=== PATIENT | male | born 1940 | race Caucasian/White ===

== ENCOUNTER 2016-09-17 09:14 | Day surgery (SDC) | payer MEDICARE, OTHER ==
[~2016-09-17 09:14] MED LIST: LIDOCAINE HCL 1% MPF SOL ONE; PROPOFOL 500 MG/50 ML EMU IV ONE
[2016-09-17] MEDS ORDERED: PROPOFOL 10 MG/ML EMU IV ONE (13:08)
[2016-09-17 13:33] VITALS: O2SAT 98
== END 2016-09-17 15:58 | disposition home or self-care (01) | DRG 812 ==
LOC: SURG 09:14
PROVIDERS: ATTEND Surgery
DX: D50.0 Iron deficiency anemia secondary to blood loss (chronic) (principal); D12.0 Benign neoplasm of cecum; R19.5 Other fecal abnormalities; D12.2 Benign neoplasm of ascending colon; D12.5 Benign neoplasm of sigmoid colon; D12.3 Benign neoplasm of transverse colon; D12.8 Benign neoplasm of rectum; K29.50 Unspecified chronic gastritis without bleeding
CPT/HCPCS: 36415; 71260; 74177; Q9967; J2001; J2704

== ENCOUNTER 2017-07-26 15:17 | Emergency (ER) | payer MEDICARE, OTHER ==
[2017-07-26] MEDS ORDERED: MORPHINE SULFATE 10 MG/ML SOL IV ONE (15:46)
[2017-07-26] MEDS ORDERED: MORPHINE SULFATE 10 MG/ML SOL ONE (15:58)
[2017-07-26 15:59] LABS: BASOPHILS % (AUTO) 1 % (0-3); EOSINOPHILS % (AUTO) 2 % (0-9); HEMATOCRIT 34 % (39-53); HEMOGLOBIN 11.8 gm/dl (13.5-17.7); MEAN CORPUSCULAR HEMOGLOBIN 29.6 pg (27.0-32.0); MEAN CORPUSCULAR HGB CONC 34.5 gm/dl (32.0-36.0); MEAN CORPUSCULAR VOLUME 86 fL (80-100); MONOCYTES % (AUTO) 12.1 % (0-12); NEUTROPHILS % (AUTO) 71.9 % (37-80)
[2017-07-26] MEDS: SODIUM CHLORIDE 0.9% FLUSH 10 ML SOL IV PRN ×2 (16:00→16:47)
[2017-07-26 16:18] LABS: BILIRUBIN,TOTAL 0.2 mg/dl (0.2-1.0); CALCIUM 8.1 mg/dl (8.5-10.1); CARBON DIOXIDE 28.4 mEq/L (21-32); CREATININE 1.2 mg/dl (0.80-1.30); TOTAL PROTEIN 6.7 gm/dl (6.4-8.2); TROP I 0.019 ng/ml (0.000-0.056)
[2017-07-26] MEDS ORDERED: LEVOFLOXACIN IV ONE (17:19)
[2017-07-26] MEDS ORDERED: SODIUM CHLORIDE 0.9% IV ONE (17:19)
[2017-07-26] MEDS ORDERED: LEVOFLOXACIN 25 MG/ML SOL IV ONE (17:25)
[2017-07-26 18:42] VITALS: BP 117/76; PULSE 70; RESP 20; TEMP 99.5; O2SAT 96
== END 2017-07-26 18:42 | disposition home or self-care (01) | DRG 195 ==
LOC: ED 15:17
DX: J18.1 Lobar pneumonia, unspecified organism (principal); M25.559 Pain in unspecified hip
CPT/HCPCS: 71045; 72133; 73502; 80053; 83880; 84484; 85025; 93005; 99285; J1956; J2270

== ENCOUNTER 2018-06-21 12:06 | Inpatient (IN) | payer MEDICARE, OTHER ==
[2018-06-21] MEDS ORDERED: SODIUM CHLORIDE 0.9% FLUSH 10 ML SOL IV PRN (12:21)
[2018-06-21] MEDS ORDERED: ONDANSETRON HCL 4 MG/2 ML SOL IV PRN (12:24)
[2018-06-21] MEDS ORDERED: LORAZEPAM 0.5 MG TAB PO PRN (13:27)
[2018-06-21] MEDS ORDERED: HYDROXYZINE HCL 10 MG PO PRN (13:27)
[2018-06-21] MEDS ORDERED: ACETAMINOPHEN 325 MG PO PRN (13:27)
[2018-06-21] MEDS: SODIUM CHLORIDE 0.9% 1000ML 1,000 ML IV SCH ×2 (13:49→18:22)
[2018-06-21] MEDS: PANTOPRAZOLE SODIUM 40 MG/10 ML PDS IV SCH (13:49)
[2018-06-21] MEDS: CARVEDILOL 3.125 MG TAB PO SCH (17:38)
[2018-06-21] MEDS ORDERED: TEMAZEPAM 15MG 15 MG CAP PO PRN (18:43)
[2018-06-21] MEDS: APAP/HYDROCODONE 1 EACH TABLET PO PRN (21:36)
[2018-06-21] MEDS: ATORVASTATIN 10 MG TAB PO SCH (21:36)
[2018-06-21] MEDS: SENNOSIDES A AND B 8.6 MG TAB PO SCH (21:37)
[2018-06-21] MEDS: FAMOTIDINE 20 MG TAB PO SCH (21:37)
[2018-06-21] MEDS ORDERED: DEXAMETHASONE 1 MG PO SCH (23:00)
[2018-06-22] MEDS: SODIUM CHLORIDE 0.9% 1000ML 1,000 ML IV SCH ×4 (00:47→23:56)
[2018-06-22] MEDS: APAP/HYDROCODONE 1 EACH TABLET PO PRN ×3 (07:20→21:17)
[2018-06-22 08:01] LABS: BASOPHILS % (AUTO) 1 % (0-3); EOSINOPHILS % (AUTO) 1 % (0-9); HEMATOCRIT 30 % (39-53); HEMOGLOBIN 9.7 gm/dl (13.5-17.7); LYMPHOCYTES % (AUTO) 8.4 % (10-50); MEAN CORPUSCULAR HEMOGLOBIN 25.9 pg (27.0-32.0); MEAN CORPUSCULAR HGB CONC 32.3 gm/dl (32.0-36.0); MONOCYTES % (AUTO) 12.7 % (0-12); NEUTROPHILS % (AUTO) 77.2 % (37-80)
[2018-06-22 08:02] LABS: MEAN CORPUSCULAR VOLUME 80 fL (80-100)
[2018-06-22 08:11] LABS: CALCIUM 7.6 mg/dl (8.5-10.1); CREATININE 0.9 mg/dl (0.80-1.30); POTASSIUM 4.5 mMol/L (3.5-5.1)
[2018-06-22 08:19] LABS: CARBON DIOXIDE 25.1 mEq/L (21-32)
[2018-06-22] MEDS: DOCUSATE SODIUM 100 MG SGL PO SCH (08:25)
[2018-06-22] MEDS: CARVEDILOL 3.125 MG TAB PO SCH ×2 (08:25→17:12)
[2018-06-22] MEDS: SENNOSIDES A AND B 8.6 MG TAB PO SCH ×2 (08:26→21:18)
[2018-06-22] MEDS: FAMOTIDINE 20 MG TAB PO SCH ×2 (08:26→21:18)
[2018-06-22] MEDS: ENOXAPARIN 100 MG SOL SC SCH (08:30)
[2018-06-22] MEDS: PANTOPRAZOLE SODIUM 40 MG/10 ML PDS IV SCH (08:31)
[2018-06-22] MEDS: POLYETHYLENE GLYCOL 17 GM/1 TBS PDS PO SCH (10:06)
[2018-06-22] MEDS: ALBUTEROL/IPRATROPIUM 1 VIAL SOL INH SCH ×3 (10:08→21:19)
[2018-06-22] MEDS ORDERED: BISACODYL 10 MG SUP PR PRN (12:59)
[2018-06-22] MEDS ORDERED: ALBUTEROL NEB SOL 2.5MG/3ML 1 VIAL SOL NEB PRN (15:34)
[2018-06-22] MEDS: ATORVASTATIN 10 MG TAB PO SCH (21:18)
[2018-06-23] MEDS: ALBUTEROL/IPRATROPIUM 1 VIAL SOL INH SCH ×2 (02:28→09:42)
[2018-06-23 07:19] LABS: CALCIUM 7.7 mg/dl (8.5-10.1); CARBON DIOXIDE 28.3 mEq/L (21-32); CREATININE 0.95 mg/dl (0.80-1.30); POTASSIUM 4.2 mMol/L (3.5-5.1)
[2018-06-23 07:24] LABS: BASOPHILS % (AUTO) 2 % (0-3); EOSINOPHILS % (AUTO) 3 % (0-9); HEMATOCRIT 30 % (39-53); HEMOGLOBIN 9.7 gm/dl (13.5-17.7); LYMPHOCYTES % (AUTO) 9.2 % (10-50); MEAN CORPUSCULAR HEMOGLOBIN 25.8 pg (27.0-32.0); MEAN CORPUSCULAR HGB CONC 32.1 gm/dl (32.0-36.0); MONOCYTES % (AUTO) 14.3 % (0-12); NEUTROPHILS % (AUTO) 71.4 % (37-80)
[2018-06-23 07:34] LABS: MEAN CORPUSCULAR VOLUME 81 fL (80-100)
[2018-06-23] MEDS: APAP/HYDROCODONE 1 EACH TABLET PO PRN ×2 (07:55→09:58)
[2018-06-23 08:00] VITALS: BP 147/81; TEMP 98.2
[2018-06-23] MEDS: ENOXAPARIN 100 MG SOL SC SCH (09:24)
[2018-06-23] MEDS: DOCUSATE SODIUM 100 MG SGL PO SCH (09:25)
[2018-06-23] MEDS: FAMOTIDINE 20 MG TAB PO SCH (09:25)
[2018-06-23] MEDS: SENNOSIDES A AND B 8.6 MG TAB PO SCH (09:25)
[2018-06-23] MEDS: PANTOPRAZOLE SODIUM 40 MG/10 ML PDS IV SCH (09:25)
[2018-06-23] MEDS: CARVEDILOL 3.125 MG TAB PO SCH (09:25)
[2018-06-23] MEDS: POLYETHYLENE GLYCOL 17 GM/1 TBS PDS PO SCH (09:26)
[2018-06-23 09:44] VITALS: PULSE 82; RESP 20; O2SAT 97
== END 2018-06-23 11:00 | disposition home or self-care (01) | DRG 181 ==
LOC: ACUTE CARE 12:06
PROVIDERS: ADMIT Emergency Medicine; ATTEND Emergency Medicine
DX: C78.02 Secondary malignant neoplasm of left lung (principal); E87.1 Hypo-osmolality and hyponatremia; R10.13 Epigastric pain; R06.2 Wheezing; G47.34 Idiopathic sleep related nonobstructive alveolar hypoventilation
CPT/HCPCS: 36415; 70553; 80048; 85025; 94060; 94150; 94640; 94762; J1650; A9270-GY; A9585

== ENCOUNTER 2018-07-07 14:28 | Inpatient (IN) | payer MEDICARE, OTHER ==
[2018-07-07] MEDS ORDERED: SODIUM CHLORIDE 0.9% 500 ML 500 ML IV ONE (14:43)
[2018-07-07] MEDS ORDERED: HEPARIN 500 Unit PRE-FILL 100 U/ML SOL IV PRN (15:00)
[2018-07-07 15:25] LABS: APPEARANCE,URINE Cloudy; BILIRUBIN,URINE 1+ (NEGATIVE); COLOR,URINE Dark yellow; GLUCOSE, URINE (UA) NEGATIVE (NEGATIVE); KETONES,URINE TRACE (NEGATIVE); LEUKOCYTE ESTERASE ,URINE NEGATIVE (NEGATIVE); NITRATE,URINE NEGATIVE (NEGATIVE); OCCULT BLOOD,URINE NEGATIVE (NEG-TRACE); PH,URINE 5.5
[2018-07-07 15:55] LABS: BACTERIA 1+ (< 1+); CRYSTALS NEGATIVE (0-3 AVE/HPF); EPITHELIAL CELLS 0-2 (SQUAMOUS); ICTOTEST,URINE NEGATIVE (NEGATIVE); RBC,URINE 0-4 (0-3AV/HPF); WBC,URINE 0-3 (0-5AV/HPF)
[2018-07-07] MEDS: SODIUM CHLORIDE 0.9% 1000ML 1,000 ML IV SCH (16:27)
[2018-07-07] MEDS ORDERED: MORPHINE SULFATE 15 MG TAB PO PRN (17:39)
[2018-07-07] MEDS ORDERED: BISACODYL 10 MG SUP PR PRN (17:39)
[2018-07-07] MEDS ORDERED: HYDROXYZINE HCL 10 MG PO PRN (17:39)
[2018-07-07] MEDS ORDERED: TRIAMCINOLONE 0.1% CREAM CRE TOP PRN (17:39)
[2018-07-07] MEDS ORDERED: LORAZEPAM 0.5 MG TAB PO PRN (17:39)
[2018-07-07] MEDS ORDERED: MAGNESIUM CITRATE SOL PO PRN (17:41)
[2018-07-07] MEDS ORDERED: MORPHINE SULFATE 10 MG/5 ML SOL PO PRN (19:56)
[2018-07-07] MEDS: SENNOSIDES A AND B 8.6 MG TAB PO SCH (20:33)
[2018-07-07] MEDS: ATORVASTATIN 10 MG TAB PO SCH (20:38)
[2018-07-07] MEDS ORDERED: RANITIDINE HCL 150 MG TAB PO SCH (21:00)
[2018-07-07] MEDS ORDERED: PIPERACILLIN/TAZOBACT 3.375 GM 3 GM in SODIUM CHLORIDE 0.9% 100 ML 100 ML IV SCH ×2 (21:15→21:30)
[2018-07-07 21:46] LABS: HEMATOCRIT 25 % (39-53); HEMOGLOBIN 8.1 gm/dl (13.5-17.7); MEAN CORPUSCULAR HEMOGLOBIN 25.6 pg (27.0-32.0); MEAN CORPUSCULAR HGB CONC 32.5 gm/dl (32.0-36.0)
[2018-07-07 21:48] LABS: CALCIUM 7.5 mg/dl (8.5-10.1); CARBON DIOXIDE 25.4 mEq/L (21-32); CREATININE 1.03 mg/dl (0.80-1.30); POTASSIUM 4.2 mMol/L (3.5-5.1)
[2018-07-07 21:49] LABS: LACTIC ACID 0.8 mMol/L (0.0-2.0)
[2018-07-07 21:52] LABS: MEAN CORPUSCULAR VOLUME 79 fL (80-100)
[2018-07-07] MEDS ORDERED: PIPERACILLIN/TAZOBACT 3.375 GM PDS IV ONE (22:09)
[2018-07-07] MEDS ORDERED: SODIUM CHLORIDE 0.9% 100 ML 100 ML IV ONE (22:09)
[2018-07-07 22:12] LABS: ANISOCYTOSIS SLIGHT; BAND NEUTROPHILS % (MANUAL) 0 %; BASOPHILS % (MANUAL) 0 % (0-3); EOSINOPHILS % (MANUAL) 2 % (0-9); LYMPHOCYTES % (MANUAL) 34 % (10-50); MONOCYTES % (MANUAL) 24 % (0-12); NEUTROPHILS % (MANUAL) 40 % (37-80); TOTAL CELLS COUNTED 50
[2018-07-07] MEDS: FAMOTIDINE 20 MG TAB PO SCH (22:17)
[2018-07-07] MEDS: ACETAMINOPHEN 325 MG PO PRN (22:40)
[2018-07-08] MEDS ORDERED: PATIENT EDUCATION 1 MISC PRN (00:22)
[2018-07-08] MEDS: SODIUM CHLORIDE 0.9% 1000ML 1,000 ML IV SCH ×2 (02:53→13:35)
[2018-07-08] MEDS: ACETAMINOPHEN 325 MG PO PRN ×2 (02:58→15:50)
[2018-07-08] MEDS ORDERED: SODIUM CHLORIDE 0.9% 100 ML 100 ML IV ONE ×3 (03:17→15:56)
[2018-07-08] MEDS ORDERED: PIPERACILLIN/TAZOBACT 3.375 GM PDS IV ONE ×3 (03:17→15:56)
[2018-07-08] MEDS ORDERED: PIPERACILLIN/TAZOBACT 3.375 GM 3.375 GM in SODIUM CHLORIDE 0.9% 100 ML 100 ML IV ONE (04:30)
[2018-07-08] MEDS: PIPERACILLIN/TAZOBACT 3.375 GM 3.375 GM in SODIUM CHLORIDE 0.9% 100 ML 100 ML IV SCH ×4 (04:45→23:41)
[2018-07-08 07:45] LABS: HEMATOCRIT 26 % (39-53); HEMOGLOBIN 8.2 gm/dl (13.5-17.7); MEAN CORPUSCULAR HEMOGLOBIN 25.2 pg (27.0-32.0); MEAN CORPUSCULAR HGB CONC 31.6 gm/dl (32.0-36.0)
[2018-07-08 07:46] LABS: MEAN CORPUSCULAR VOLUME 80 fL (80-100)
[2018-07-08 07:48] LABS: CALCIUM 7.7 mg/dl (8.5-10.1); CARBON DIOXIDE 25.9 mEq/L (21-32); CREATININE 1.04 mg/dl (0.80-1.30); POTASSIUM 3.9 mMol/L (3.5-5.1)
[2018-07-08] MEDS ORDERED: OMEPRAZOLE 40 MG ECC PO SCH (08:00)
[2018-07-08] MEDS: FAMOTIDINE 20 MG TAB PO SCH ×2 (08:16→16:14)
[2018-07-08 08:22] LABS: BAND NEUTROPHILS % (MANUAL) 12 %; NEUTROPHILS % (MANUAL) 32 % (37-80)
[2018-07-08 08:23] LABS: ANISOCYTOSIS SLIGHT AMT; BASOPHILS % (MANUAL) 0 % (0-3); EOSINOPHILS % (MANUAL) 4 % (0-9); LYMPHOCYTES % (MANUAL) 28 % (10-50); MONOCYTES % (MANUAL) 24 % (0-12); TOTAL CELLS COUNTED 25
[2018-07-08] MEDS: CARVEDILOL 3.125 MG TAB PO SCH ×2 (09:54→18:10)
[2018-07-08] MEDS: POLYETHYLENE GLYCOL 17 GM/1 TBS PDS PO SCH (09:55)
[2018-07-08] MEDS: DOCUSATE SODIUM 100 MG SGL PO SCH ×2 (09:55→09:57)
[2018-07-08] MEDS: ENOXAPARIN 100 MG SOL SC SCH (09:55)
[2018-07-08] MEDS: MULTIVITAMIN2 1 EA TAB PO SCH (09:55)
[2018-07-08] MEDS: SENNOSIDES A AND B 8.6 MG TAB PO SCH ×3 (09:56→20:08)
[2018-07-08] MEDS: PANTOPRAZOLE SODIUM 40 MG ECT PO SCH (09:56)
[2018-07-08] MEDS: TIOTROPIUM BROMIDE 18 MCG CAP INH SCH (14:16)
[2018-07-08] MEDS: LUTEIN 6 MG PO SCH (14:29)
[2018-07-08] MEDS: FISH OIL 500 MG CAP PO SCH (14:29)
[2018-07-08] MEDS: ATORVASTATIN 10 MG TAB PO SCH (20:05)
[2018-07-08] MEDS: APAP/HYDROCODONE 1 EACH TABLET PO PRN (20:05)
[2018-07-09] MEDS: SODIUM CHLORIDE 0.9% 1000ML 1,000 ML IV SCH ×2 (00:27→10:42)
[2018-07-09] MEDS ORDERED: SODIUM CHLORIDE 0.9% 100 ML 100 ML IV ONE ×4 (03:51→22:39)
[2018-07-09] MEDS ORDERED: PIPERACILLIN/TAZOBACT 3.375 GM PDS IV ONE ×4 (03:51→22:39)
[2018-07-09] MEDS: PIPERACILLIN/TAZOBACT 3.375 GM 3.375 GM in SODIUM CHLORIDE 0.9% 100 ML 100 ML IV SCH ×4 (04:52→22:51)
[2018-07-09] MEDS: FAMOTIDINE 20 MG TAB PO SCH ×2 (06:43→16:43)
[2018-07-09 07:24] LABS: HEMATOCRIT 26 % (39-53); HEMOGLOBIN 8.4 gm/dl (13.5-17.7); MEAN CORPUSCULAR HEMOGLOBIN 25.5 pg (27.0-32.0); MEAN CORPUSCULAR HGB CONC 32.2 gm/dl (32.0-36.0)
[2018-07-09 07:26] LABS: CALCIUM 7.3 mg/dl (8.5-10.1); CARBON DIOXIDE 23.4 mEq/L (21-32); CREATININE 0.95 mg/dl (0.80-1.30); POTASSIUM 3.7 mMol/L (3.5-5.1)
[2018-07-09 07:34] LABS: MEAN CORPUSCULAR VOLUME 79 fL (80-100)
[2018-07-09 08:30] LABS: ANISOCYTOSIS SLIGHT AMT; BAND NEUTROPHILS % (MANUAL) 11 %; BASOPHILS % (MANUAL) 0 % (0-3); EOSINOPHILS % (MANUAL) 1 % (0-9); LYMPHOCYTES % (MANUAL) 21 % (10-50); MONOCYTES % (MANUAL) 22 % (0-12); NEUTROPHILS % (MANUAL) 45 % (37-80)
[2018-07-09 08:31] LABS: HYPOCHROMASIA SLIGHT AMT
[2018-07-09] MEDS: APAP/HYDROCODONE 1 EACH TABLET PO PRN ×2 (09:03→19:01)
[2018-07-09] MEDS: PANTOPRAZOLE SODIUM 40 MG ECT PO SCH (09:06)
[2018-07-09] MEDS: DOCUSATE SODIUM 100 MG SGL PO SCH ×2 (09:06→09:08)
[2018-07-09] MEDS: LUTEIN 6 MG PO SCH (09:07)
[2018-07-09] MEDS: FISH OIL 500 MG CAP PO SCH (09:07)
[2018-07-09] MEDS: POLYETHYLENE GLYCOL 17 GM/1 TBS PDS PO SCH (09:09)
[2018-07-09] MEDS: SENNOSIDES A AND B 8.6 MG TAB PO SCH ×2 (09:09→21:00)
[2018-07-09] MEDS: ENOXAPARIN 100 MG SOL SC SCH (09:11)
[2018-07-09] MEDS: CARVEDILOL 3.125 MG TAB PO SCH ×2 (09:13→17:52)
[2018-07-09] MEDS: TIOTROPIUM BROMIDE 18 MCG CAP INH SCH (09:14)
[2018-07-09] MEDS: MULTIVITAMIN2 1 EA TAB PO SCH (09:14)
[2018-07-09] MEDS: ATORVASTATIN 10 MG TAB PO SCH (21:00)
[2018-07-09] MEDS: ALBUTEROL NEB SOL 2.5MG/3ML 1 VIAL SOL NEB PRN (23:05)
[2018-07-10] MEDS ORDERED: PIPERACILLIN/TAZOBACT 3.375 GM PDS IV ONE (04:44)
[2018-07-10] MEDS ORDERED: SODIUM CHLORIDE 0.9% 100 ML 100 ML IV ONE (04:45)
[2018-07-10] MEDS: PIPERACILLIN/TAZOBACT 3.375 GM 3.375 GM in SODIUM CHLORIDE 0.9% 100 ML 100 ML IV SCH (04:56)
[2018-07-10] MEDS: FAMOTIDINE 20 MG TAB PO SCH (06:25)
[2018-07-10 07:16] VITALS: BP 114/68; TEMP 99.2
[2018-07-10] MEDS: ENOXAPARIN 100 MG SOL SC SCH (08:05)
[2018-07-10] MEDS: TIOTROPIUM BROMIDE 18 MCG CAP INH SCH (08:12)
[2018-07-10] MEDS: CARVEDILOL 3.125 MG TAB PO SCH (08:19)
[2018-07-10] MEDS: PANTOPRAZOLE SODIUM 40 MG ECT PO SCH (08:20)
[2018-07-10] MEDS: FISH OIL 500 MG CAP PO SCH (08:20)
[2018-07-10] MEDS: DOCUSATE SODIUM 100 MG SGL PO SCH (08:20)
[2018-07-10] MEDS: LUTEIN 6 MG PO SCH (08:20)
[2018-07-10] MEDS: POLYETHYLENE GLYCOL 17 GM/1 TBS PDS PO SCH (08:25)
[2018-07-10] MEDS: SENNOSIDES A AND B 8.6 MG TAB PO SCH (08:25)
[2018-07-10] MEDS: MULTIVITAMIN2 1 EA TAB PO SCH (08:25)
[2018-07-10] MEDS: ALBUTEROL NEB SOL 2.5MG/3ML 1 VIAL SOL NEB PRN (08:29)
[2018-07-10 08:36] VITALS: RESP 24
[2018-07-10 08:47] LABS: HEMATOCRIT 28 % (39-53); HEMOGLOBIN 8.7 gm/dl (13.5-17.7); MEAN CORPUSCULAR HGB CONC 31.3 gm/dl (32.0-36.0)
[2018-07-10 08:53] LABS: CALCIUM 7.6 mg/dl (8.5-10.1); CARBON DIOXIDE 22.4 mEq/L (21-32); CREATININE 1.01 mg/dl (0.80-1.30); POTASSIUM 3.9 mMol/L (3.5-5.1)
[2018-07-10 08:54] LABS: MEAN CORPUSCULAR VOLUME 80 fL (80-100)
[2018-07-10 10:13] LABS: BAND NEUTROPHILS % (MANUAL) 17 %; BASOPHILS % (MANUAL) 0 % (0-3); EOSINOPHILS % (MANUAL) 0 % (0-9); LYMPHOCYTES % (MANUAL) 11 % (10-50); MONOCYTES % (MANUAL) 9 % (0-12); NEUTROPHILS % (MANUAL) 63 % (37-80)
[2018-07-10 10:14] LABS: NORMAL RBCS PRESENT
[2018-07-10 11:07] VITALS: PULSE 78; O2SAT 91
[2018-07-10] MEDS ORDERED: SODIUM CHLORIDE 0.9% FLUSH 10 ML SOL IV SCH (11:15)
[2018-07-10] MEDS: APAP/HYDROCODONE 1 EACH TABLET PO PRN (12:32)
== END 2018-07-10 13:40 | disposition home or self-care (01) | DRG 641 ==
LOC: ACUTE CARE 14:28
PROVIDERS: ADMIT Family Medicine; ATTEND Family Medicine
DX: E87.1 Hypo-osmolality and hyponatremia (principal); C34.90 Malignant neoplasm of unspecified part of unspecified bronchus or lung; E86.0 Dehydration; D70.9 Neutropenia, unspecified; K59.00 Constipation, unspecified; R06.02 Shortness of breath
CPT/HCPCS: 36415; 36591; 51798; 71046; 80048; 81001; 85007; 85027; 87040; 94640; 99070; J1644; J1650; J2543; J7613; A9270-GY

== ENCOUNTER 2018-07-29 17:57 | Inpatient (IN) | payer MEDICARE, OTHER ==
[2018-07-29] MEDS ORDERED: SODIUM CHLORIDE 0.9% 1000ML 1,000 ML IV ONE (19:01)
[2018-07-29] MEDS ORDERED: CEFTRIAXONE 1 GM PDS ONE (19:49)
[2018-07-29] MEDS ORDERED: SODIUM CHLORIDE 0.9% 50 ML 50 ML IV ONE (19:49)
[2018-07-29] MEDS: CEFTRIAXONE 1 GM PDS 1 GM in SODIUM CHLORIDE 0.9% 50 ML 50 ML IV SCH (20:13)
[2018-07-29] MEDS ORDERED: ACETAMINOPHEN 325 MG PO PRN (21:45)
[2018-07-29] MEDS ORDERED: ONDANSETRON HCL 4 MG TAB PO PRN (21:45)
[2018-07-29] MEDS ORDERED: Non-Formulary Medication MISC (Sennosides/Docusate Sodium [Senna-S 50 Mg-8.6 Mg] 1 TAB) PO PRN (21:45)
[2018-07-29] MEDS ORDERED: MORPHINE SULFATE 15 MG TAB PO PRN (21:45)
[2018-07-29] MEDS ORDERED: HYDROXYZINE HCL 10 MG PO PRN (21:45)
[2018-07-29] MEDS ORDERED: PROCHLORPERAZINE MALEATE 5 MG TAB PO PRN (21:45)
[2018-07-29] MEDS ORDERED: BISACODYL 10 MG SUP PR PRN (21:45)
[2018-07-29] MEDS ORDERED: TRIAMCINOLONE 0.1% TOP PRN (21:45)
[2018-07-29] MEDS ORDERED: APAP/HYDROCODONE 1 EACH TABLET PO PRN (21:45)
[2018-07-29] MEDS ORDERED: ALBUTEROL NEB SOL 2.5MG/3ML 1 VIAL SOL NEB PRN (21:48)
[2018-07-30] MEDS ORDERED: DEXTROSE/SALINE 0.45/KCL 20MEQ 1,000 ML/1,000 ML SOL IV ONE (01:00)
[2018-07-30] MEDS ORDERED: CEFTRIAXONE 1 GM PDS ONE (07:04)
[2018-07-30] MEDS ORDERED: SODIUM CHLORIDE 0.9% 50 ML 50 ML IV ONE (07:05)
[2018-07-30 07:22] LABS: CALCIUM 7.6 mg/dl (8.5-10.1); CARBON DIOXIDE 26.8 mEq/L (21-32); CREATININE 0.89 mg/dl (0.80-1.30); POTASSIUM 4.3 mMol/L (3.5-5.1)
[2018-07-30] MEDS: CEFTRIAXONE 1 GM PDS 1 GM in SODIUM CHLORIDE 0.9% 50 ML 50 ML IV SCH (07:27)
[2018-07-30 07:30] LABS: HEMATOCRIT 21 % (39-53); MEAN CORPUSCULAR HEMOGLOBIN 26.3 pg (27.0-32.0); MEAN CORPUSCULAR HGB CONC 33.4 gm/dl (32.0-36.0)
[2018-07-30 07:45] LABS: MEAN CORPUSCULAR VOLUME 79 fL (80-100)
[2018-07-30] MEDS ORDERED: HEPARIN 500 Unit PRE-FILL 100 U/ML SOL IV SCH (08:00)
[2018-07-30 08:23] LABS: BAND NEUTROPHILS % (MANUAL) 2 %; BASOPHILS % (MANUAL) 2 % (0-3); EOSINOPHILS % (MANUAL) 2 % (0-9); LYMPHOCYTES % (MANUAL) 18 % (10-50); MONOCYTES % (MANUAL) 26 % (0-12); NEUTROPHILS % (MANUAL) 50 % (37-80)
[2018-07-30 08:24] LABS: ANISOCYTOSIS MOD AMT; POIKILOCYTOSIS SLIGHT; TOTAL CELLS COUNTED 50
[2018-07-30] MEDS: FOLIC ACID 1 MG TAB PO SCH (08:31)
[2018-07-30] MEDS: MULTIVITAMIN2 1 EA TAB PO SCH (08:31)
[2018-07-30] MEDS: PANTOPRAZOLE SODIUM 40 MG ECT PO SCH (08:31)
[2018-07-30] MEDS: ENOXAPARIN 100 MG SOL SC SCH (08:32)
[2018-07-30] MEDS: CARVEDILOL 3.125 MG TAB PO SCH ×2 (08:34→17:51)
[2018-07-30] MEDS: POLYETHYLENE GLYCOL 17 GM/1 TBS PDS PO SCH (08:40)
[2018-07-30] MEDS ORDERED: ENOXAPARIN 40 MG SOL SC SCH (09:00)
[2018-07-30] MEDS: CEFEPIME HYDROCHLORIDE 2 GM in SODIUM CHLORIDE 0.9% 100 ML 100 ML IV SCH ×2 (10:12→21:37)
[2018-07-30 10:16] LABS: ABO A; ANTIBODY SCREEN Negative; RH TYPE Positive
[2018-07-30 10:17] LABS: UNIT TYPE A POSITIVE
[2018-07-30 10:20] LABS: UNIT TYPE A POSITIVE
[2018-07-30 11:10] LABS: APPEARANCE,URINE Clear; BILIRUBIN,URINE NEGATIVE (NEGATIVE); COLOR,URINE Yellow; GLUCOSE, URINE (UA) NEGATIVE (NEGATIVE); KETONES,URINE NEGATIVE (NEGATIVE); LEUKOCYTE ESTERASE ,URINE NEGATIVE (NEGATIVE); NITRATE,URINE NEGATIVE (NEGATIVE); OCCULT BLOOD,URINE NEGATIVE (NEG-TRACE); UROBILINOGEN,URINE 0.2 (0.2-1.0 EU)
[2018-07-30] MEDS: SODIUM CHLORIDE 0.9% FLUSH 10 ML SOL IV SCH ×2 (11:20→19:57)
[2018-07-30] MEDS ORDERED: HEPARIN 500 Unit PRE-FILL 100 U/ML SOL IV PRN (11:24)
[2018-07-30 11:25] LABS: BACTERIA RARE (< 1+); CRYSTALS NEGATIVE (0-3 AVE/HPF); EPITHELIAL CELLS NEGATIVE (SQUAMOUS); RBC,URINE NEG (0-3AV/HPF); WBC,URINE NEG (0-5AV/HPF)
[2018-07-30] MEDS: ALBUTEROL/IPRATROPIUM 1 VIAL SOL INH SCH ×3 (12:28→23:29)
[2018-07-30] MEDS: SODIUM CHLORIDE 0.9% FLUSH 10 ML SOL IV PRN ×4 (13:37→22:40)
[2018-07-30] MEDS ORDERED: DOCUSATE SODIUM 100 MG SGL PO PRN (14:33)
[2018-07-30] MEDS ORDERED: TRIAMCINOLONE 0.1% CREAM CRE TOP PRN (14:45)
[2018-07-30] MEDS ORDERED: SENNOSIDES A AND B 8.6 MG TAB PO PRN (14:45)
[2018-07-30] MEDS: ATORVASTATIN 10 MG TAB PO SCH (21:30)
[2018-07-30] MEDS: LORAZEPAM 0.5 MG TAB PO PRN (21:30)
[2018-07-31] MEDS: SODIUM CHLORIDE 0.9% FLUSH 10 ML SOL IV SCH ×4 (03:23→20:09)
[2018-07-31] MEDS: ALBUTEROL/IPRATROPIUM 1 VIAL SOL INH SCH ×4 (05:01→22:36)
[2018-07-31 07:27] LABS: ALBUMIN 1.9 gm/dl (3.4-5.0); BILIRUBIN,TOTAL 0.4 mg/dl (0.2-1.0); CALCIUM 7.7 mg/dl (8.5-10.1); CARBON DIOXIDE 28.1 mEq/L (21-32); CREATININE 0.88 mg/dl (0.80-1.30); POTASSIUM 4.1 mMol/L (3.5-5.1); TOTAL PROTEIN 5.5 gm/dl (6.4-8.2)
[2018-07-31 08:08] LABS: HEMATOCRIT 26 % (39-53); HEMOGLOBIN 8.6 gm/dl (13.5-17.7); MEAN CORPUSCULAR VOLUME 82 fL (80-100)
[2018-07-31] MEDS: CARVEDILOL 3.125 MG TAB PO SCH ×2 (08:11→17:24)
[2018-07-31] MEDS: ENOXAPARIN 100 MG SOL SC SCH (08:11)
[2018-07-31] MEDS: FOLIC ACID 1 MG TAB PO SCH (08:12)
[2018-07-31] MEDS: MULTIVITAMIN2 1 EA TAB PO SCH (08:12)
[2018-07-31] MEDS: PANTOPRAZOLE SODIUM 40 MG ECT PO SCH (08:13)
[2018-07-31] MEDS: POLYETHYLENE GLYCOL 17 GM/1 TBS PDS PO SCH (08:13)
[2018-07-31 08:24] LABS: ANISOCYTOSIS SLIGHT AMT; BAND NEUTROPHILS % (MANUAL) 4 %; BASOPHILS % (MANUAL) 0 % (0-3); EOSINOPHILS % (MANUAL) 2 % (0-9); LYMPHOCYTES % (MANUAL) 14 % (10-50); MONOCYTES % (MANUAL) 26 % (0-12); NEUTROPHILS % (MANUAL) 54 % (37-80); OVALOCYTES PRESENT; POIKILOCYTOSIS SLIGHT AMT
[2018-07-31] MEDS ORDERED: TIOTROPIUM BROMIDE 18 MCG CAP INH SCH (09:00)
[2018-07-31] MEDS: SODIUM CHLORIDE 0.9% FLUSH 10 ML SOL IV PRN ×2 (09:44→20:49)
[2018-07-31] MEDS: CEFEPIME HYDROCHLORIDE 2 GM in SODIUM CHLORIDE 0.9% 100 ML 100 ML IV SCH ×2 (09:44→20:43)
[2018-07-31] MEDS: ATORVASTATIN 10 MG TAB PO SCH (20:42)
[2018-07-31] MEDS: LORAZEPAM 0.5 MG TAB PO PRN (20:42)
[2018-08-01] MEDS: SODIUM CHLORIDE 0.9% FLUSH 10 ML SOL IV SCH ×3 (04:36→20:24)
[2018-08-01] MEDS: ALBUTEROL/IPRATROPIUM 1 VIAL SOL INH SCH ×4 (05:10→22:57)
[2018-08-01 07:45] LABS: HEMATOCRIT 26 % (39-53); HEMOGLOBIN 8.7 gm/dl (13.5-17.7); MEAN CORPUSCULAR HEMOGLOBIN 26.8 pg (27.0-32.0); MEAN CORPUSCULAR HGB CONC 33.1 gm/dl (32.0-36.0)
[2018-08-01 07:52] LABS: MEAN CORPUSCULAR VOLUME 81 fL (80-100)
[2018-08-01 07:54] LABS: CALCIUM 7.9 mg/dl (8.5-10.1); CREATININE 0.87 mg/dl (0.80-1.30)
[2018-08-01 07:59] LABS: POTASSIUM 4.1 mMol/L (3.5-5.1)
[2018-08-01 08:43] LABS: BAND NEUTROPHILS % (MANUAL) 7 %; BASOPHILS % (MANUAL) 0 % (0-3); EOSINOPHILS % (MANUAL) 1 % (0-9); LYMPHOCYTES % (MANUAL) 13 % (10-50); MONOCYTES % (MANUAL) 12 % (0-12); NEUTROPHILS % (MANUAL) 67 % (37-80)
[2018-08-01 08:44] LABS: OVALOCYTES PRESENT; POIKILOCYTOSIS SLIGHT AMT; SPHEROCYTES PRESENT
[2018-08-01] MEDS: FOLIC ACID 1 MG TAB PO SCH (08:44)
[2018-08-01] MEDS: MULTIVITAMIN2 1 EA TAB PO SCH (08:44)
[2018-08-01] MEDS: CARVEDILOL 3.125 MG TAB PO SCH ×2 (08:44→16:49)
[2018-08-01] MEDS: PANTOPRAZOLE SODIUM 40 MG ECT PO SCH (08:45)
[2018-08-01] MEDS: POLYETHYLENE GLYCOL 17 GM/1 TBS PDS PO SCH (08:45)
[2018-08-01] MEDS: CEFEPIME HYDROCHLORIDE 2 GM in SODIUM CHLORIDE 0.9% 100 ML 100 ML IV SCH ×2 (08:46→20:30)
[2018-08-01] MEDS: SODIUM CHLORIDE 0.9% FLUSH 10 ML SOL IV PRN ×3 (08:46→21:00)
[2018-08-01] MEDS: ENOXAPARIN 100 MG SOL SC SCH (08:52)
[2018-08-01] MEDS: LORAZEPAM 0.5 MG TAB PO PRN (20:30)
[2018-08-01] MEDS: ATORVASTATIN 10 MG TAB PO SCH (20:30)
[2018-08-02] MEDS: ALBUTEROL/IPRATROPIUM 1 VIAL SOL INH SCH ×2 (04:27→11:17)
[2018-08-02] MEDS: SODIUM CHLORIDE 0.9% FLUSH 10 ML SOL IV SCH ×2 (04:28→11:42)
[2018-08-02 07:13] LABS: CALCIUM 8.2 mg/dl (8.5-10.1); CARBON DIOXIDE 27.4 mEq/L (21-32); CREATININE 0.85 mg/dl (0.80-1.30); POTASSIUM 4.2 mMol/L (3.5-5.1)
[2018-08-02 07:27] LABS: BASOPHILS % (AUTO) 3 % (0-3); EOSINOPHILS % (AUTO) 1 % (0-9); HEMATOCRIT 26 % (39-53); HEMOGLOBIN 8.8 gm/dl (13.5-17.7); LYMPHOCYTES % (AUTO) 8.6 % (10-50); MEAN CORPUSCULAR HEMOGLOBIN 27.2 pg (27.0-32.0); MEAN CORPUSCULAR HGB CONC 33.5 gm/dl (32.0-36.0); MONOCYTES % (AUTO) 15.1 % (0-12); NEUTROPHILS % (AUTO) 72.8 % (37-80)
[2018-08-02 07:34] LABS: MEAN CORPUSCULAR VOLUME 81 fL (80-100)
[2018-08-02] MEDS: PANTOPRAZOLE SODIUM 40 MG ECT PO SCH (08:27)
[2018-08-02] MEDS: FOLIC ACID 1 MG TAB PO SCH (08:27)
[2018-08-02] MEDS: MULTIVITAMIN2 1 EA TAB PO SCH (08:27)
[2018-08-02] MEDS: CARVEDILOL 3.125 MG TAB PO SCH (08:27)
[2018-08-02] MEDS: POLYETHYLENE GLYCOL 17 GM/1 TBS PDS PO SCH (08:27)
[2018-08-02] MEDS: ENOXAPARIN 100 MG SOL SC SCH (09:42)
[2018-08-02] MEDS: CEFEPIME HYDROCHLORIDE 2 GM in SODIUM CHLORIDE 0.9% 100 ML 100 ML IV SCH (10:00)
[2018-08-02 11:15] VITALS: BP 101/66; PULSE 83; TEMP 98.6; O2SAT 92
[2018-08-02 11:18] VITALS: RESP 18
== END 2018-08-02 12:15 | disposition home or self-care (01) | DRG 194 ==
LOC: ACUTE CARE 17:57
PROVIDERS: ADMIT Family Medicine; ATTEND Family Medicine
PROC: 30233N1 Transfusion of Nonautologous Red Blood Cells into Peripheral Vein, Percutaneous Approach (ICD-10-PCS; principal; 2018-07-30)
DX: J18.1 Lobar pneumonia, unspecified organism (principal); C34.31 Malignant neoplasm of lower lobe, right bronchus or lung; R05 Cough; D70.1 Agranulocytosis secondary to cancer chemotherapy; D70.9 Neutropenia, unspecified; R50.81 Fever presenting with conditions classified elsewhere; G47.34 Idiopathic sleep related nonobstructive alveolar hypoventilation; D64.9 Anemia, unspecified; R06.02 Shortness of breath
CPT/HCPCS: 36415; 36591; 80048; 80053; 81001; 85007; 85025; 85027; 86850; 86900; 86901; 86920; 87040; 94150; 94640; 94664; 99070; J0696; J1644; J1650; J7613; P9016; A4450; A6402; A9270-GY

== ENCOUNTER 2018-08-11 17:27 | Observation (INO) | payer MEDICARE, OTHER ==
[2018-08-11] MEDS ORDERED: ONDANSETRON HCL 4 MG/2 ML SOL ONE (18:06)
[2018-08-11] MEDS ORDERED: ONDANSETRON HCL 4 MG/2 ML SOL IV ONE (18:10)
[2018-08-11] MEDS ORDERED: SODIUM CHLORIDE 0.9% FLUSH 10 ML SOL IV PRN (18:12)
[2018-08-11 18:29] LABS: ALT 19 IU/L (14-63); AST 12 IU/L (15-37); BILIRUBIN,TOTAL 0.3 mg/dl (0.2-1.0); BLOOD UREA NITROGEN 21 mg/dl (7-18); CALCIUM 8.3 mg/dl (8.5-10.1); CARBON DIOXIDE 28.7 mEq/L (21-32); CHLORIDE 103 mMol/L (98-107); CREATININE 1.07 mg/dl (0.80-1.30); GLUCOSE 128 mg/dl (74-106)
[2018-08-11 18:30] LABS: ALBUMIN 2.2 gm/dl (3.4-5.0); ALKALINE PHOSPHATASE 104 IU/L (46-116); HEMOGLOBIN 12.4 gm/dl (13.5-17.7); TOTAL PROTEIN 6.2 gm/dl (6.4-8.2); TROP I < 0.017 ng/ml (0.000-0.056)
[2018-08-11 18:31] LABS: HEMATOCRIT 38 % (39-53); MEAN CORPUSCULAR HEMOGLOBIN 28.6 pg (27.0-32.0); MEAN CORPUSCULAR VOLUME 87 fL (80-100)
[2018-08-11 18:40] LABS: ANISOCYTOSIS SLIGHT AMT; BAND NEUTROPHILS % (MANUAL) 6 %; BASOPHILS % (MANUAL) 0 % (0-3); EOSINOPHILS % (MANUAL) 0 % (0-9); LYMPHOCYTES % (MANUAL) 2 % (10-50); MONOCYTES % (MANUAL) 1 % (0-12); NEUTROPHILS % (MANUAL) 91 % (37-80); OVALOCYTES PRESENT; POIKILOCYTOSIS SLIGHT AMT
[2018-08-11] MEDS ORDERED: PROCHLORPERAZINE MALEATE 5 MG TAB PO PRN (20:05)
[2018-08-11] MEDS ORDERED: LORAZEPAM 0.5 MG TAB PO PRN (20:05)
[2018-08-11] MEDS ORDERED: ACETAMINOPHEN 325 MG PO PRN (20:05)
[2018-08-11] MEDS ORDERED: HYDROXYZINE HCL 10 MG PO PRN (20:05)
[2018-08-11] MEDS ORDERED: APAP/HYDROCODONE 1 EACH TABLET PO PRN (20:05)
[2018-08-11] MEDS ORDERED: TRIAMCINOLONE 0.1% CREAM CRE TOP PRN (20:05)
[2018-08-11] MEDS ORDERED: ONDANSETRON HCL 4 MG TAB PO PRN (20:05)
[2018-08-11] MEDS ORDERED: DOCUSATE SODIUM 100 MG SGL PO PRN (20:05)
[2018-08-11] MEDS ORDERED: BISACODYL 10 MG SUP PR PRN (20:05)
[2018-08-11] MEDS ORDERED: SODIUM CHLORIDE 0.9% 500 ML 500 ML IV ONE (20:33)
[2018-08-11] MEDS ORDERED: SENNOSIDES A AND B 8.6 MG TAB PO PRN (20:51)
[2018-08-11] MEDS ORDERED: ATORVASTATIN 10 MG TAB PO SCH (21:00)
[2018-08-11] MEDS: CARVEDILOL 3.125 MG TAB PO SCH (21:18)
[2018-08-11] MEDS: SODIUM CHLORIDE 0.9% 1000ML 1,000 ML IV SCH (22:06)
[2018-08-12 00:38] VITALS: RESP 16
[2018-08-12 04:32] VITALS: O2SAT 94
[2018-08-12] MEDS ORDERED: PANTOPRAZOLE SODIUM 40 MG ECT PO SCH (07:00)
[2018-08-12 07:51] LABS: CREATININE 0.93 mg/dl (0.80-1.30)
[2018-08-12 07:57] LABS: CARBON DIOXIDE 27.7 mEq/L (21-32)
[2018-08-12] MEDS ORDERED: OMEPRAZOLE 40 MG ECC PO SCH (08:00)
[2018-08-12 08:10] LABS: HEMATOCRIT 29 % (39-53); MEAN CORPUSCULAR HEMOGLOBIN 26.9 pg (27.0-32.0); MEAN CORPUSCULAR HGB CONC 30.8 gm/dl (32.0-36.0); MEAN CORPUSCULAR VOLUME 87 fL (80-100)
[2018-08-12 08:15] VITALS: BP 105/62; PULSE 68; TEMP 97.7
[2018-08-12 08:17] LABS: BILIRUBIN,URINE 1+ (NEGATIVE); COLOR,URINE Yellow; GLUCOSE, URINE (UA) NEGATIVE (NEGATIVE); KETONES,URINE TRACE (NEGATIVE); LEUKOCYTE ESTERASE ,URINE NEGATIVE (NEGATIVE); NITRATE,URINE NEGATIVE (NEGATIVE); OCCULT BLOOD,URINE NEGATIVE (NEG-TRACE); PH,URINE 5.5; UROBILINOGEN,URINE 0.2 (0.2-1.0 EU)
[2018-08-12 08:23] LABS: ANISOCYTOSIS SLIGHT AMT; BAND NEUTROPHILS % (MANUAL) 7 %; BASOPHILS % (MANUAL) 0 % (0-3); EOSINOPHILS % (MANUAL) 0 % (0-9); LYMPHOCYTES % (MANUAL) 1 % (10-50); MONOCYTES % (MANUAL) 1 % (0-12); NEUTROPHILS % (MANUAL) 91 % (37-80); OVALOCYTES PRESENT; POIKILOCYTOSIS SLIGHT AMT
[2018-08-12] MEDS: SODIUM CHLORIDE 0.9% 1000ML 1,000 ML IV SCH (08:26)
[2018-08-12 08:37] LABS: BACTERIA NEGATIVE (< 1+); CRYSTALS NEGATIVE (0-3 AVE/HPF); EPITHELIAL CELLS 0-3 (SQUAMOUS); ICTOTEST,URINE NEGATIVE (NEGATIVE); RBC,URINE NEG (0-3AV/HPF); WBC,URINE 0-2 (0-5AV/HPF)
[2018-08-12 08:38] LABS: APPEARANCE,URINE CLEAR
[2018-08-12] MEDS: CARVEDILOL 3.125 MG TAB PO SCH (08:56)
[2018-08-12] MEDS ORDERED: OMEGA PO SCH (09:00)
[2018-08-12] MEDS ORDERED: RANITIDINE HCL 150 MG TAB PO SCH (09:00)
[2018-08-12] MEDS ORDERED: TIOTROPIUM BROMIDE 18 MCG CAP INH SCH (09:00)
[2018-08-12] MEDS ORDERED: ENOXAPARIN 100 MG SOL SC SCH (09:00)
[2018-08-12] MEDS ORDERED: POLYETHYLENE GLYCOL 17 GM/1 TBS PDS PO SCH (09:00)
[2018-08-12] MEDS ORDERED: FOLIC ACID 1 MG TAB PO SCH (09:00)
[2018-08-12] MEDS ORDERED: LUTEIN 6 MG PO SCH (09:00)
[2018-08-12] MEDS ORDERED: FISH OIL PO SCH (09:00)
[2018-08-12] MEDS ORDERED: FATTY ACIDS PO SCH (09:00)
[2018-08-12] MEDS ORDERED: MULTIVITAMIN2 1 EA TAB PO SCH (09:00)
[2018-08-12] MEDS ORDERED: FAMOTIDINE 20 MG TAB PO SCH (09:15)
== END 2018-08-12 09:40 | disposition home or self-care (01) | DRG 815 ==
LOC: ED 17:27 → UNDOADMOB 19:57 → ACUTE CARE 19:57
PROVIDERS: ADMIT Family Medicine; ATTEND Family Medicine
DX: D72.829 Elevated white blood cell count, unspecified (principal); C34.90 Malignant neoplasm of unspecified part of unspecified bronchus or lung; R55 Syncope and collapse; W18.30XA Fall on same level, unspecified, initial encounter; E86.0 Dehydration
CPT/HCPCS: 36415; 70450; 71045; 80048; 80053; 81001; 84484; 85007; 85027; 93005; 96374; 99283; 99285; J1650; J2405; A9270-GY

== ENCOUNTER 2018-11-16 13:44 | Day surgery (SDC) | payer MEDICARE, OTHER ==
[~2018-11-16 13:44] MED LIST changes: +FENTANYL 100MCG/2ML SOL ONE; -LIDOCAINE HCL 1% MPF SOL ONE; +MIDAZOLAM 2 MG/2 ML SOL ONE; -PROPOFOL 500 MG/50 ML EMU IV ONE
[2018-11-16] MEDS ORDERED: ACETAZOLAMIDE 250 MG PO ONE (14:01)
[2018-11-16 14:08] VITALS: TEMP 98.1; O2SAT 94
[2018-11-16] MEDS: CYCLOPENTOLATE 1% SOL ONE ×3 (14:11→14:17)
[2018-11-16] MEDS ORDERED: KETOROLAC/HOME 0.5% SOL RIGHTEYE ONE (14:11)
[2018-11-16] MEDS ORDERED: MOXIFLOXACIN-HOME SOL RIGHTEYE ONE ×2 (14:11→14:14)
[2018-11-16] MEDS ORDERED: OFLOXACIN 0.3% OPHTHAL 1 DROP SOL RIGHTEYE ONE ×2 (14:11→14:14)
[2018-11-16] MEDS: TROPICAMIDE 1% OPHTH SOL ONE ×3 (14:11→14:17)
[2018-11-16] MEDS: PHENYLEPHRINE HCL 10% OPHTHAL SOL ONE ×3 (14:11→14:17)
[2018-11-16] MEDS: KETOROLAC/HOME 0.5% SOL RIGHTEYE ONE ×2 (14:14→14:18)
[2018-11-16] MEDS: TETRACAINE HCL 0.5 % OPHTH 1 DROP SOL ONE ×2 (14:18→15:02)
[2018-11-16] MEDS ORDERED: LIDOCAINE HCL 2% MPF 10 ML SOL ONE (14:57)
[2018-11-16] MEDS ORDERED: POVIDONE IODINE 5% SOL ONE (14:57)
[2018-11-16] MEDS ORDERED: BSS W/ 0.5 MG P.F. EPI 1 BOTTLE ONE (14:57)
[2018-11-16 15:29] VITALS: PULSE 86; RESP 20
[2018-11-16] MEDS ORDERED: ACETAZOLAMIDE 500 MG CER PO ONE (15:30)
[2018-11-16 15:37] VITALS: BP 134/77
== END 2018-11-16 15:56 | disposition home or self-care (01) | DRG 125 ==
LOC: SURG 13:44
PROVIDERS: ATTEND Ophthalmology
DX: H25.89 Other age-related cataract (principal)
CPT/HCPCS: J2250; J3010; A9270-GY